=== PATIENT | male | born 1985 | race Caucasian/White ===

== ENCOUNTER 2018-09-19 12:22 | Emergency (ER) | payer BC ==
--- NOTE | 2018-09-19 13:11 | ER Document Report ---
ED Medical Screen (RME) - General Chief Complaint: Skin Problem Stated Complaint: HEAD PAIN Time Seen by Provider: 09/19/18 13:06 Mode of Arrival: Ambulatory Information source: Patient Notes: Patient presents to the emergency department with complaints that his right eye was drooping now feels kind of blurry. Patient reports he started with a rash on Thursday was treated for shingles on Thursday. Has been taking antiviral for this since Thursday. Reports pain up his right side of his head right neck and the eye feels funny that started this am. No obvious drooping noted. I have greeted and performed a rapid initial assessment of this patient. A comprehensive ED assessment and evaluation of the patient, analysis of test results and completion of the medical decision making process will be conducted by additional ED providers. Dictation of this chart was performed using voice recognition software; therefore, there may be some unintended grammatical errors. TRAVEL OUTSIDE OF THE [place] IN LAST 30 DAYS: No - Related Data Allergies/Adverse Reactions: No Known Allergies Allergy (Verified 09/19/18 12:33) Physical Exam - Vital signs Vitals: Temp Pulse Resp BP Pulse Ox 98.1 F 83 16 133/90 H 99 09/19/18 12:39 09/19/18 12:39 09/19/18 12:39 09/19/18 12:39 09/19/18 12:39 Course - Vital Signs Vital signs: Temp Pulse Resp BP Pulse Ox 98.1 F 83 16 133/90 H 99 09/19/18 12:39 09/19/18 12:39 09/19/18 12:39 09/19/18 12:39 09/19/18 12:39
--- NOTE | 2018-09-19 14:21 | ER Document Report ---
ED General - General Chief Complaint: Skin Problem Stated Complaint: HEAD PAIN Time Seen by Provider: 09/19/18 13:06 Primary Care Provider: ARTIS HURTADO MD [Primary Care Provider] - Follow up as needed Mode of Arrival: Ambulatory Information source: Patient, [facility] Records Notes: 33-year-old male with hypertension, recent diagnosis of shingles presents with complaint of right eye puffiness and right-sided neck pain that started this morning. Patient states that he was diagnosed with shingles 1 week ago and stented on an antiviral. He states that he has been experiencing burning pain down his right arm and up the right side of his neck. He woke this morning with his right eye mildly swollen and became concerned that he may have shingles in his eye. Patient denies visual changes, pain with eye movement. TRAVEL OUTSIDE OF THE [place] IN LAST 30 DAYS: No - HPI Onset: This morning Onset/Duration: Sudden Quality of pain: Achy Severity: Mild Associated symptoms: denies: Nonproductive cough, Productive cough, Fever, Headache, Nausea, Vomiting Exacerbated by: Denies Relieved by: Denies Similar symptoms previously: Yes Recently seen / treated by doctor: Yes - Related Data Allergies/Adverse Reactions: No Known Allergies Allergy (Verified 09/19/18 12:33) Past Medical History - General Information source: Patient - Social History Smoking Status: Unknown if Ever Smoked Frequency of alcohol use: None Drug Abuse: None Lives with: Family Family History: Reviewed & Not Pertinent Patient has suicidal ideation: No Patient has homicidal ideation: No - Past Medical History Cardiac Medical History: Reports: Hx Hypertension Renal/ Medical History: Denies: Hx Peritoneal Dialysis Review of Systems - Review of Systems Notes: REVIEW OF SYSTEMS: CONSTITUTIONAL : Denies fever, chills, or sweats. Denies recent illness. Denies weight loss, recent hospitalizations. EENT: Denies visual changes, eye pain. Denies sore throat, oral lesions, difficulty swallowing. CARDIOVASCULAR: Denies chest pain. Denies palpitations. Denies lower extremity edema. RESPIRATORY: Denies cough. Denies shortness of breath, wheezing. GASTROINTESTINAL: Denies abdominal pain or distention. Denies nausea, vomiting, or diarrhea. Denies blood in vomitus, stools, or per rectum. Denies black, tarry stools. Denies constipation. GENITOURINARY: Denies difficulty urinating, painful urination, frequency, blood in urine, testicular pain or penile discharge. MUSCULOSKELETAL: Denies back or neck pain or stiffness. Denies joint pain or swelling. SKIN: + rash, lesions or sores. HEMATOLOGIC : Denies easy bruising or bleeding. LYMPHATIC: Denies swollen glands. NEUROLOGICAL: Denies confusion or altered mental status. Denies loss of consciousness. Denies dizziness or lightheadedness. Denies headache. Denies weakness or paralysis. Denies problems difficulty with ambulation, slurred speech. Denies sensory loss, numbness, or tingling. Denies seizures. PSYCHIATRIC: Denies anxiety or stress. Denies depression, suicidal ideation, or Physical Exam - Vital signs Vitals: Temp Pulse Resp BP Pulse Ox 98.1 F 83 16 133/90 H 99 09/19/18 12:39 09/19/18 12:39 09/19/18 12:39 09/19/18 12:39 09/19/18 12:39 - Notes Notes: PHYSICAL EXAMINATION: GENERAL: Well-appearing, well-nourished and in no acute distress. HEAD: Atraumatic, normocephalic. No rash on face EYES: Pupils equal round and reactive to light, extraocular movements intact, sclera anicteric, conjunctiva are normal. No fluorescene uptake. No dendritic lesions. ENT: Nares patent, oropharynx clear without exudates. Moist mucous membranes. NECK: Normal range of motion, supple without lymphadenopathy LUNGS: Breath sounds clear to auscultation bilaterally and equal. No wheezes rales or rhonchi. HEART: Regular rate and rhythm without murmurs ABDOMEN: Soft, nontender, nondistended abdomen. No guarding, no rebound. No masses appreciated. Musculoskeletal: Normal range of motion, no pitting or edema. No cyanosis. NEUROLOGICAL: Cranial nerves grossly intact. Normal speech, normal gait. Normal sensory, motor exams PSYCH: Normal mood, normal affect. SKIN: Vesicular rash along the right side of the neck and right shoulder. - HEENT Visual acuity- Right eye: 20/30 Visual acuity- Left eye: 20/20 Visual acuity- Both eyes: 20/15 Corrective lenses worn: Yes Course - Re-evaluation Re-evalutation: 09/19/18 15:29 33-year-old male with a recent history of shingles presents with neuropathic pain due to shingles. He also was concerned because he awoke this morning and thought his right eye looks swollen. His eye exam is completely normal he has normal visual acuity slit-lamp exam within normal limits. No fluorescein uptake seen, no dendritic lesions seen. Patient has no rash on his face or forehead. Patient was prescribed gabapentin for his pain and advised to follow-up with his primary care physician in the next 3 to 5 days. Patient was evaluated and treated as appropriate for the patient's presenting symptoms and complaint, with consideration of any critical or life threatening conditions that may be associated with their obtained history and exam as noted above. All results were discussed with patient and... Patient provided the opportunity to ask questions, and express concerns. Patient was educated on treatments based on their presumed diagnosis as noted above. At this time we will discharge the patient with return precautions and follow-up recommendations. Verbal discharge instructions given a the bedside. Medication warnings reviewed. Patient is in agreement with this plan and has verbalized understanding of return precautions. After careful consideration I feel that that patient can be safely discharged from the emergency department, they were advised to followup with a primary care physician in 2-3 days. Dictation on this chart was performed using voice recognition software and may result in unintended grammatical, spelling, syntax or errors. - Vital Signs Vital signs: Temp Pulse Resp BP Pulse Ox 97.8 F 87 18 134/88 H 99 09/19/18 14:41 09/19/18 14:41 09/19/18 14:41 09/19/18 14:41 09/19/18 14:41 Discharge - Discharge Clinical Impression: Post herpetic neuralgia Condition: Good Disposition: HOME, SELF-CARE Instructions: Neuralgia ([facility]), Shingles ([facility]) Additional Instructions: Follow up with your [id number] hours for further care or return to the ED IMMEDIATELY if symptoms worsen or you have any concerns. If you cannot afford to follow up with your primary care physician a list of low cost clinics have been provided at the end of your discharge papers as well. Most prescribed medications have multiple side effects. The safest thing to do is when filling your prescription speak to your pharmacist regarding possible interactions with your normal home medications and over the counter medications such as Ibuprofen, Tylenol, Benadryl. If you experience any symptoms that cause you discomfort or concern you should discontinue the medication immediately and return to the emergency room or call your primary care physician. Prescriptions: Gabapentin [Gralise] 300 mg PO BID #14 tab.er.24h Hydrocodone/Acetaminophen [[place] 5-325 mg Tabs (6 Tab/ER Disp)] 1 tab PO Q6H #1 dspk Forms: Elevated Blood Pressure Referrals: ARTIS HURTADO MD [Primary Care Provider] - Follow up as needed
[2018-09-19] MEDS ORDERED: HYDROCODONE/ACETAMINOPHEN 5-325 MG (6 TAB/ER DISP) PO PRN (14:23)
[2018-09-19 15:19] VITALS: BP 134/88
== END 2018-09-19 15:00 | disposition home or self-care (01) ==
LOC: ER 12:22
DX: B02.29 Other postherpetic nervous system involvement (principal); M54.2 Cervicalgia; I10 Essential (primary) hypertension
CPT/HCPCS: 99283